=== PATIENT | female | born 1965 | race Caucasian/White ===

== ENCOUNTER 2019-12-20 01:20 | Inpatient (IN) | payer OTHER ==
[2019-12-20] VITALS (7 sets, daily range): BP systolic 108–153; BP diastolic 72–92
[~2019-12-20] VITALS: Ht 182.9 cm; Wt 92.5 kg
[~2019-12-20 01:20] MED LIST: ALPRAZOLAM ER1 MG PO; AMBIEN 5 MG TABL5 M1; AMBIEN PO; DOXYCYCLINE 10100 MG PO; GRALISE600 MG PO; LEXAPRO; LEXAPRO20 MG PO; NEURONTIN600 MG; NORCO 5-325 TA1 EACH PO; PROZAC; [UNRECOGNIZED DRUG - REMARK]
[2019-12-20] MEDS ORDERED: FLUOXETINE HCL40 MG PO (01:56)
[2019-12-20 03:00] LABS: ABSOLUTE NEUTROPHILS 5.7 thou/uL (1.4-8.2); BASOPHILS 1.1 % (0.0-2.0); EOSINOPHILS 1.4 % (0.0-3.0); HEMATOCRIT 40.8 % (37.0-47.0); HEMOGLOBIN 13.5 gm/dL (12.0-15.0); LYMPHOCYTES 19.1 % (24.0-44.0); MCH 30.4 pg (26.0-34.0); MCHC 33.1 g/dL (28.0-37.0); MONOCYTES 8.9 % (1.0-8.0); PLATELET COUNT 221 thou/uL (150-400); POLYS 69.5 % (36.0-66.0); RBC 4.43 mil/uL (4.20-5.00); RDW 14.1 % (10.5-14.5); WBC 8.3 thou/uL (4.0-11.0)
[2019-12-20 03:02] LABS: CALCIUM 9.2 mg/dL (8.5-10.1); CREATININE 0.8 mg/dL (0.6-1.0)
[2019-12-20 03:06] LABS: POTASSIUM 3.4 mmol/L (3.5-5.1)
--- NOTE | 2019-12-20 08:14 | NUR ---
PT TO UNIT AROUND 0330. ADMISSION ASSESSMENT COMPLETED. PT ORIENTED TO UNIT, STAFF AND USE OF CALL LIGHT. PT STATES HER PAIN IS MUCH BETTER. ANTIBIOTICS AND FLUIDS INFUSING PER ORDER. PUBLIC INFORMATION RELATIONS MANAGER UP TO SEE PT, HOME MEDS RESTARTED. PT EXPERIENCED SOME VOMITING THIS MORNING - SHE STATED SHE FELT MUCH BETTER NOW. UP TO THE BEDSIDE COMMODE WITH ASSIST, AVOIDING PUTTING WEIGHT ON THE L FOOT. L FOOT IS SWOLLEN AND RED, PULSES STILL STRONG. DID NOT SLEEP TONGIHT STAFF WAS IN AND OUT OF THE ROOM. LABS DRAWN THIS AM. WILL CONTINUE TO MONITOR.
[2019-12-20 13:27] LABS: CALCIUM 8.8 mg/dL (8.5-10.1); CREATININE 0.9 mg/dL (0.6-1.0); POTASSIUM 3.2 mmol/L (3.5-5.1)
--- NOTE | 2019-12-20 17:30 | NUR ---
PT ASSESSED AT START OF SHIFT. PT STATES SHE'S FEELING SO MUCH BETTER SINCE COMING INTO THE HOSPITAL. STATES FOOT ALREADY MUCH LESS RED/SWOLLEN. ENC TO KEEP LT LEG ELEVATED AT ALL TIMES. IV ANTIBIOTICS PER ORDERS. APPETITE DECREASED FROM TASTE BUDS OFF FROM MEDICATION. ENC TO DRINK WATER PT DRINKS A LOT OF SODA. NICOTINE PATCH HELPING W/ CRAVINGS.
--- NOTE | 2019-12-20 19:55 | NUR ---
1900 ASSUMED CARE OF PT FROM DAY SHIFT 1944 ASSESSMENT COMPLETED, DAY SHIFT STATES INFLAMMATION BETTER THAN THIS AM, IV RUNNING WITHOUT DIFFICULTY, PT STATES CONSTIPATION, WILL GIVE PRN MED, PT UP WITH ASSIST WALKER AND GAIT BELT, NON WEIGHT BEARING LEFT LOWER EXTREMITY. FALL PRECAUTIONS IN PLACE. WILL CONTINUE WITH HOURLY ROUNDING.
[2019-12-21 03:20] VITALS: BP 102/82
--- NOTE | 2019-12-21 05:59 | HC ---
[facility] [place] [address] CONSULTATION Name: JACQUELINE DIXON Room #: 444-P [facility] IN M.R.#: [id number] Admission: 12/20/19 Attend Phys: Arnold Chavez MD Discharge: Date of : 69 Report #: [id number] THIS REPORT FOR: cc: [facility] - Clinic physician unknown [facility] - Clinic physician unknown Saleem Rivera MD ~ CC: Arnold Chavez [facility] unknown DATE OF SERVICE: 12/20/2019 INFECTIOUS DISEASE CONSULTATION ATTENDING PHYSICIAN: Dr. Chavez. REASON FOR EVALUATION: Deep infection involving the left foot. HISTORY OF PRESENT ILLNESS: Chart reviewed, patient examined. This is a 54-year-old woman apparently with history of ethanolism who is living in a hotel at the moment. She does smoke. She was outside in her bare feet. Apparently, she was quite anxious, was pacing. States she stepped on a shelf with a meth pipe. She did peel out some shards of glass and this occurred roughly 3-4 days ago. She continued to have discomfort and then notably increased inflammation with redness, swelling, pain. It is not clear that she had fevers. She presented to the Emergency Room ____ the above. There was an additional shard removed from the plantar aspect and was empirically started on clindamycin. She states she feels much improved. She does have some residual tenderness. Denies significant pulmonary or gastrointestinal related complaints. ALLERGIES: None. CURRENT MEDICATIONS: Include zolpidem, enoxaparin, clindamycin, ____, fluoxetine, famotidine, gabapentin, nicotine, p.r.n. analgesics and antiemetics. PAST MEDICAL HISTORY: As described above, history of depression, bipolar disease. SOCIAL HISTORY: Confirmed, she smokes cigarettes, utilizes marijuana, ethanol. FAMILY HISTORY: Noncontributory. REVIEW OF SYSTEMS: Otherwise, unremarkable 10-point review of systems as noted above. PHYSICAL EXAMINATION: GENERAL: She is in ftgw-fc-dypunsia distress. She is anxious. She appears [facility] [address] [place] [address] CONSULTATION Name: JACQUELINE DIXON Room #: [address] [place] [address] IN M.R.#: [id number] Admission: 12/20/19 Attend Phys: Arnold Chavez MD Discharge: Date of : 69 Report #: [id number] somewhat chronically ill, older than her stated age, unkempt. VITAL SIGNS: Temperature 98.5, pulse 71, respirations 17, blood pressure 122/78. SKIN: Warm, dry, no rashes. HEENT: Normocephalic. Extraocular muscles intact. NECK: Supple. LUNGS: Somewhat diminished breath sounds. She has got few crackles at the bases. HEART: Regular. I do not appreciate a murmur. ABDOMEN: Soft, nontender, nondistended. EXTREMITIES: Distal left lower extremity has moderate degree of inflammation. She is quite tender actually over the dorsal aspect, less over the plantar. She has got the superficial wound with some eschar at the mid point at the level of the metatarsal. I do not appreciate any fluctuance at this point. GENITOURINARY AND RECTAL: Deferred. LABORATORY DATA: Electrolytes: Sodium 133, potassium 3.4, chloride 98, bicarbonate is 24, anion gap of 11, BUN and creatinine 10 and 0.8, glucose of 101. CRP of 61.4. CBC: White count of 8.3, H and H of 13.5 and 40.8, platelets of 221. Lactic acid 1.3. Initial x-ray of the foot shows a 1 cm x 7 mm foreign body in the plantar aspect of the foot between the third and fourth metatarsophalangeal joints. ASSESSMENT AND PLAN: Deep seated infection, certainly is encouraging that she got a significant amount of relief thus far, still moderately inflamed, but I think it is reasonable to continue therapy. It is difficult to ascertain whether there would be a concern for other than skin charmaine to see how she does clinically over the next 24-48 hours. Continue parenteral therapy with clindamycin, it seems to be some she tolerates. We will follow. <ELECTRONICALLY SIGNED> By: Saleem Rivera MD 12/21/19 [phone] Saleem Rivera MD /nt
[2019-12-21 09:01] VITALS: BP 108/62
[2019-12-21 11:12] LABS: HEMATOCRIT 35.6 % (37.0-47.0); HEMOGLOBIN 11.9 gm/dL (12.0-15.0); MCHC 33.4 g/dL (28.0-37.0); MCV 92.9 fL (80.0-100.0); RBC 3.83 mil/uL (4.20-5.00); RDW 14.1 % (10.5-14.5); WBC 4.1 thou/uL (4.0-11.0)
[2019-12-21 11:26] LABS: CALCIUM 8.3 mg/dL (8.5-10.1); CREATININE 0.8 mg/dL (0.6-1.0); MAGNESIUM 1.9 mg/dL (1.8-2.4); POTASSIUM 4.1 mmol/L (3.5-5.1)
--- NOTE | 2019-12-21 15:19 | NUR ---
PT ASSESSED AT START OF SHIFT. LT FOOT REDDNESS AND SWELLING IMPROVED QUITE A BIT SINCE YESTERDAY. PT ABLE TO PUT MORE WT ON FOOT W/O MUCH PAIN. TOOK SHOWER AND SCRUBBED IV OUT OF ARM. WILL REPACE FOR NEXT IV DOSE ANTIBIOTIC. UP TO THE BSC FOR VOIDING. NO BM YET AFTER MIRALX-WILL GIVE ANOTHER DOSE TODAY. NICODERM PATCH INCREASED TO 21MG AND WORKING BETTER.
[2019-12-21 16:25] VITALS: BP 125/86
[2019-12-21 19:08] VITALS: BP 136/85
[2019-12-22 03:46] VITALS: BP 149/92
[2019-12-22 07:35] VITALS: BP 127/72
--- NOTE | 2019-12-22 07:43 | NUR ---
PT AMBULATING IN ROOM INDEPENDENTLY AND IS TOLERATING FAIR. TORADOL PROVIDING PAIN RELIEF. RESTING COMFORTABLY. NO NEEDS VOICED. CALL LIGHT WITHIN REACH. FREQUENT OBSERVATION.
--- NOTE | 2019-12-22 20:42 | NUR ---
ASSUMED CARE OF THE PATIENT AT 0715, PATIENT WAS SLEEPING AT REPORT TIME. THIS RN WENT IN TO DO ASSESSMENT, PATIENT WAS PLEASANT, NO C/O PAIN. PATIENT UP WITH MIN. ASSIST TO BSC. APPLIED NICOTINE PATCH TO RIGHT UPPER ARM. PATIENT WAS HOPING TO GO HOME TODAY. THIS RN WENT TO TO TALK WITH THE PATINT AND INFORM HER OF NEW ORDERS RECEIVED. PATIENT HAD CALLED OUT AND STATED IV WAS HURTING, AND SHE WANTED IT REMOVED. I INFORMED THE PATIENT OF NEW IV ORDERS, AND THAT I WOULD REMOVED THE IV, SMALL AMOUNT OF BLOOD AT INSERTION SITEM BUT I WAS GOING TO REMOVE AND ATTEMPT NEW IV, PATIENT STARTED HOLLERSING AND CUSSING AT ME, AND I LEFT THE ROOM. PATIENT STARTED GETTING HER ITEMS TOGETHER, AND STATED SHE WAS GOING TO WALK OUT OF HER. PATIENT CAME OUT TO THE DESK AREA, HOLLERING AT STAFF, THIS RN NOTIFIED THE NURSE REGISTERED NURSE CARDIOVASCULAR ICU/RADHA, WHO DID COME ON THE UNIT AND PATIENT WAS HOLLERING AND CUSSING AT HER ALSO. SECURITY CALLED, I OBTAINED AMA PAPER. PATIENT DID SIGN THE AMA FORM. IV WAS REMOVED BY GUI/CATHERINE. SECURITY ESCORTED THE PATIENT OF THE UNIT. PATIENT HAD A FRIEND COME BACK TO GET HER MEDS AT THE PHARMACY, SHE GAVE HIM PERMISSION TO P/U THE MEDS. DR QUIROZ NOTIFIED OF THE INCIDENT. VERGE REPORT IN THE SYSTEM.
[2019-12-23 12:08] LABS: HAV IgM AB (ANTI-HAV IgM) Negative (Negative); HEPATITIS B SURFACE AG Negative (Negative); HEPATITIS C VIRUS AB 0.3 (0.0-0.9); HIV ANTIBODY Non Reactive (Non Reactive)
== END 2019-12-22 14:27 | disposition left against medical advice (07) | DRG 603 ==
LOC: ER 01:20 → EROBS 03:07 → 4S 03:07 → EROBS 03:37 → 4S 03:49
PROVIDERS: Emergency Medicine; Nurse Practitioner Family; ADMIT Internal Medicine
PROC: 0HCNXZZ Extirpation of Matter from Left Foot Skin, External Approach (ICD-10-PCS; principal; 2019-12-20)
DX: L03.116 Cellulitis of left lower limb (principal); G47.00 Insomnia, unspecified; N64.89 Other specified disorders of breast; F17.210 Nicotine dependence, cigarettes, uncomplicated; G62.9 Polyneuropathy, unspecified; F31.9 Bipolar disorder, unspecified; S91.342A Puncture wound with foreign body, left foot, initial encounter; Z53.29 Procedure and treatment not carried out because of patient's decision for other reasons; X58.XXXA Exposure to other specified factors, initial encounter; Z71.6 Tobacco abuse counseling; Y93.89 Activity, other specified; Z23 Encounter for immunization
CPT/HCPCS: 10195

== ENCOUNTER 2020-11-18 18:42 | Emergency (ER) | payer OTHER ==
[~2020-11-18] VITALS: Ht 182.9 cm; Wt 81.7 kg
[~2020-11-18 18:42] MED LIST changes: +FLUOXETINE HCL40 MG PO
[2020-11-18] MEDS ORDERED: BACTRIM DS TAB1 EACH PO ×3 (19:02→19:05)
[2020-11-18 19:55] VITALS: BP 160/98
== END 2020-11-18 19:55 | disposition home or self-care (01) ==
LOC: ER 18:42
DX: T14.8XXA Other injury of unspecified body region, initial encounter (principal); L01.00 Impetigo, unspecified; F32.9 Major depressive disorder, single episode, unspecified; F17.210 Nicotine dependence, cigarettes, uncomplicated; Z79.899 Other long term (current) drug therapy; W57.XXXA Bitten or stung by nonvenomous insect and other nonvenomous arthropods, initial encounter; Y93.89 Activity, other specified; Y92.89 Other specified places as the place of occurrence of the external cause; Y99.8 Other external cause status

== ENCOUNTER 2021-05-24 00:03 | Emergency (ER) | payer OTHER ==
[~2021-05-24] VITALS: Ht 182.9 cm; Wt 81.7 kg
--- NOTE | ~2021-05-24 | EMS ---
[place] [address] EMS Patient Care Report Name: JACQUELINE DIXON Room #: DEP ELAINA Lopez#: [id number] Admission: 05/24/21 Attend Phys: Discharge: 05/24/21 Date of : 69 Report #: [id number] THIS REPORT FOR: //name// Report Transmitted: 05/25/2021 10:27 EMS Care Summary [place], [place]/[facility] Incident [id number] @ 05/23/2021 23:40 Incident Location E [facility] / [place] [address] Patient JACQUELINE DIXON Female, 55 Years 1965 Patient Address E [facility] / [place] [address] Patient History None Reported, Patient Allergies No known allergies, Patient Medications None Reported, Chief Complaint BEHAVIORAL Disposition Transported No Lights/[place] Dispatch Reason Psychiatric Problem/Abnormal Behavior/Suicide Attempt Transported To [facility] Narrative SCENE: ON ARRIVAL PT FOUND SITTING UPRIGHT ON [place]B AT INTERSECTION OF ADDRESS PROVIDED. PT IS AWAKE AND ALERT WITH A GCS OF 15. [facility] [place] [address] EMS Patient Care Report Name: JACQUELINE DIXON Room #: [facility].#: [id number] Admission: 05/24/21 Attend Phys: Discharge: 05/24/21 Date of : 69 Report #: [id number] REQUESTS EMS TO OBTAIN VITALS. PT AGREES TO FURTHER ASSESSMENT IN EMS UNIT. AMBULANCE: PT BECAME UNCOOPERATIVE AND AGRESSIVE WHEN EMS ATTEMPTED TO HELP HER ONTO STRETCHER. PT THEN CALLED THE [facility] SIGN LANGUAGE TRANSLATOR [employer]UL[employer]AR NAMES AND WAS UNCOOPERATIVE TO THE POINT OF NOT BEING WILLING TO PROVIDE CERTAIN [facility] PERSONNEL WITH HER INFO. PT TRANSPORTED TO [facility], WHERE SHE ATTEMPTED TO EXIT THE COT WHILE IT WAS IN THE AIR, AFTER MULTIPLE ORDERS TO SIT STILL. PT THEN BECAME AGGRESSIVE AND VIOLENT WITH ER STAFF. NO OTHER CHANGES Initial Vitals @23:48GCS: 15, Assessments @23:48MENTAL:Combative,SKIN:HEENT:LUNG SOUNDS:ABDOMEN:PELVIS//GI:EXTREMITIES:PULSE:NEURO:@23:57MENTAL:Confused,SKIN:H EENT:LUNG SOUNDS:ABDOMEN:PELVIS//GI:EXTREMITIES:PULSE:NEURO: Impression Behavioral/psychiatric episode Procedures @23:48ALS AssessmentResponse: UnchangedFailed@23:52StretcherResponse: Unchanged Timeline 23:38,Call Received 23:38,Dispatch Notified 23:40,Dispatched 23:40,En Route 23:46,On Scene 23:47,At Patient 23:48,BP: / M,PULSE: ,RR: R,SPO2: Ox,ETCO2: ,BG: ,PAIN: ,GCS: 15, 23:48,ALS Assessment,Response: UnchangedFailed, 23:52,Stretcher,Response: Unchanged 23:54,Depart Scene 23:58,At Destination 00:20,Call Closed Disclaimer v1.1 Copyright 2020 [employer] This EMS Care Summary contains data elements from the applicable legal record (which may be displayed differently). It is designed to provide pertinent information for the following purposes: continuity of care, clinical quality, and state data reporting. The complete legal record is available to ED staff and administrators of the receiving hospital in [employer]'s Patient Tracker. All data is provided "as is."
[~2021-05-24 00:03] MED LIST changes: +BACTRIM DS TAB1 EACH PO
[2021-05-24 01:29] LABS: URINE BILIRUBIN NEGATIVE (Negative); URINE BLOOD NEGATIVE (Negative); URINE CLARITY CLEAR; URINE COLOR YELLOW; URINE GLUCOSE-RANDOM* NEGATIVE (Negative); URINE KETONES NEGATIVE (Negative); URINE LEUKOCYTES-REFLEX NEGATIVE (Negative); URINE NITRITE-REFLEX NEGATIVE (Negative); URINE PROTEIN (DIPSTICK) NEGATIVE (Negative); URINE SPECIFIC GRAVITY <= 1.005 (1.005-1.035); URINE UROBILINOGEN 0.2 E.U./dl (0.2-1.0)
[2021-05-24 01:39] LABS: AMP/METHAMP Negative (Negative); BARBITURATES Negative (Negative); BENZODIAZEPINES Negative (Negative); COCAINE Negative (Negative); METHADONE Negative (Negative); OPIATES Negative (Negative); PCP Negative (Negative)
[2021-05-24] MEDS ORDERED: BACTRIM DS TAB1 EACH PO (01:48)
[2021-05-24 03:03] VITALS: BP 128/85
== END 2021-05-24 03:00 | disposition home or self-care (01) ==
LOC: ER 00:03
PROVIDERS: Emergency Medicine
DX: L08.9 Local infection of the skin and subcutaneous tissue, unspecified (principal); F32.9 Major depressive disorder, single episode, unspecified; F17.210 Nicotine dependence, cigarettes, uncomplicated; Z79.899 Other long term (current) drug therapy

== ENCOUNTER 2021-05-30 05:40 | Emergency (ER) | payer OTHER ==
[~2021-05-30] VITALS: Ht 182.9 cm; Wt 81.7 kg
--- NOTE | ~2021-05-30 | EMS ---
[place] [address] EMS Patient Care Report Name: JACQUELINE DIXON Room #: REG John#: [id number] Admission: 05/30/21 Attend Phys: Discharge: Date of : 69 Report #: [id number] THIS REPORT FOR: //name// Report Transmitted: 05/30/2021 05:01 EMS Care Summary [place], [place]/[facility] Incident [id number] @ 05/30/2021 05:[address] [place], [place] [id number] Patient JACQUELINE DIXON Female, 55 Years 1965 [place] [address] Patient Allergies No known allergies, Patient Medications Gabapentin, Prozac, Ambien, Chief Complaint cold/wet Disposition Transported No Lights/[place] Dispatch Reason Breathing Problem Transported To [facility] Narrative pt is homeless female out in the rain. she w/o being wet and cold. she has multiple other complaints including, vomiting once a day, open skin sores on back and arms, dizziness, back pain, SOB, and believes she "has the virus". pt was seen last week at ER for same. pt seats self on cot and states she doesn't want to answer a bunch of questions and would rather just talk to the DR. transport w/o change. pt starts to quiet and appears to rest comfortably enroute. [address] [address] EMS Patient Care Report Name: JACQUELINE DIXON Room #: REG [facility].#: [id number] Admission: 05/30/21 Attend Phys: Discharge: Date of : 69 Report #: [id number] Initial Vitals @05:25P: 69,R: 20,BP: 143/91,Pain: 10/10,GCS: 15,Revised Trauma: 12, Assessments @05:34MENTAL:No Abnormalities,SKIN:Other,HEENT:Head/Face: No Abnormalities,LUNG SOUNDS:General: Vomiting,ABDOMEN:General: Vomiting,PELVIS//GI:EXTREMITIES:PULSE:Radial: 2+ Normal,NEURO:Other, Impression Skin infection Procedures @05:34ALS AssessmentResponse: Unchanged@05:34StretcherResponse: Unchanged Timeline 05:08,Call Received 05:08,Dispatch Notified 05:10,Dispatched 05:10,En Route 05:15,On Scene 05:16,At Patient 05:22,Depart Scene 05:25,BP: 143/91 M,PULSE: 69,RR: 20 R,SPO2: Ox,ETCO2: ,BG: ,PAIN: 10,GCS: 15, 05:34,ALS Assessment,Response: Unchanged 05:34,Stretcher,Response: Unchanged 05:35,At Destination 05:50,Call Closed Disclaimer v1.1 Copyright 2020 [employer] This EMS Care Summary contains data elements from the applicable legal record (which may be displayed differently). It is designed to provide pertinent information for the following purposes: continuity of care, clinical quality, and state data reporting. The complete legal record is available to ED staff and administrators of the receiving hospital in [facility]'s Patient Tracker. All data is provided "as is."
[2021-05-30] MEDS ORDERED: BENADRYL25 MG PO (06:46)
[2021-05-30] MEDS ORDERED: NYAMYC15 GM TOP (06:46)
[2021-05-30 07:00] VITALS: BP 139/75
== END 2021-05-30 07:07 | disposition home or self-care (01) ==
LOC: ER 05:40
PROVIDERS: Emergency Medicine
DX: R21 Rash and other nonspecific skin eruption (principal); Z20.822 Contact with and (suspected) exposure to COVID-19; R05.9 Cough, unspecified; F32.9 Major depressive disorder, single episode, unspecified; F17.210 Nicotine dependence, cigarettes, uncomplicated; Z79.899 Other long term (current) drug therapy; Z79.1 Long term (current) use of non-steroidal anti-inflammatories (NSAID)